=== PATIENT | male | born 1960 | race Caucasian/White ===

== ENCOUNTER 2021-01-13 12:18 | Inpatient (IN) ==
[2021-01-13] MEDS ORDERED: PANTOPRAZOLE 40 MG VIAL IV STA (13:00)
[2021-01-13] MEDS ORDERED: SODIUM CHLORIDE 0.9% 1,000 ML IV STA (13:00)
[2021-01-13 13:17] LABS: Basophils % 0.5 % (0.0-0.8); Eosinophils % 0.1 % (0.00-10.9); Hematocrit 29.1 VOL% (42.0-52.0); Hemoglobin 9.5 GM/DL (14.0-18.0); Immature Granulocytes % 0.6 %; Immature Granulocytes Absolute 0.05 #; Lymphocytes # 1.3 10*3/uL (1.4-4.0); Lymphocytes % 16.4 % (21.2-54.2); Mean Corpuscular HGB Conc 32.6 GM/DL (32-36); Mean Corpuscular Volume 94.5 FL (87-102); Mean Platelet Volume 9.5 FL (9.6-12.0); Monocytes % 3.9 % (1.7-12.7); Neutrophils % 78.5 % (38.7-73.9); Platelet Count 209 T/CUMM (130-400); Red Blood Count 3.08 MC/CUMM (3.8-5.5); Red Cell Distribution Width 14.6 % (9.3-17.3); White Blood Count 7.9 T/CUMM (4-12)
[2021-01-13 13:35] LABS: Albumin 3.1 G/DL (3.4-5.0); Bilirubin,Total 0.4 MG/DL (0.2-1.0); Calcium 8.3 MG/DL (8.5-10.1); Osmolality,Calculated 284.7 MOS/KG (273-304); Potassium 4.7 MMOL/L (3.5-5.1); Total Protein 5.6 G/DL (6.4-8.2)
[2021-01-13 13:37] LABS: PT Patient Result 10.8 SECS (10.5-12.0); Partial Thromboplastin Time 22.8 SECS (23.9-33.8)
[2021-01-13] MEDS ORDERED: NICOTINE 21 MG/24 HR PATCH TRANSDERM PRN (14:08)
[2021-01-13] MEDS ORDERED: chlordiazePOXIDE 10 MG CAPSULE PO PRN (14:08)
[2021-01-13] MEDS ORDERED: ACETAMINOPHEN 325 MG TABLET PO PRN (14:08)
[2021-01-13] MEDS ORDERED: DOCUSATE SODIUM 100 MG CAPSULE PO PRN (14:08)
[2021-01-13] MEDS ORDERED: CALCIUM CARBONATE CHEW 500 MG TABLET PO PRN (14:08)
[2021-01-13] MEDS ORDERED: GLUCAGON 1 MG VIAL IM PRN (14:08)
[2021-01-13] MEDS ORDERED: DEXTROSE 50% 25 GM/50 ML VIAL IV PRN (14:08)
[2021-01-13] MEDS ORDERED: ONDANSETRON 4 MG/2 ML VIAL IV PRN (14:08)
[2021-01-13] MEDS ORDERED: ALUMINUM/MAGNES/SIMETH MAX STR 30 ML UDCUP PO PRN (14:08)
[2021-01-13 14:51] LABS: % Iron Saturation 37.3 % (18-50); Ferritin 9.5 ng/ml (26-388)
[2021-01-13] MEDS: SODIUM CHLORIDE 0.9% 1,000 ML IV SCH (14:55)
[2021-01-13 15:03] LABS: Folate 13.89 NG/ML (5.38-24.0)
[2021-01-13 16:59] LABS: Hematocrit 25.9 VOL% (42.0-52.0); Hemoglobin 8.5 GM/DL (14.0-18.0)
[2021-01-13] MEDS: PANTOPRAZOLE 40 MG VIAL IV SCH (20:21)
[2021-01-13] MEDS: ZALEPLON 5 MG CAPSULE PO PRN (22:26)
[2021-01-14 01:17] LABS: Hematocrit 23.1 VOL% (42.0-52.0); Hemoglobin 7.6 GM/DL (14.0-18.0)
[2021-01-14 01:29] LABS: Albumin 2.6 G/DL (3.4-5.0); Bilirubin,Total 0.5 MG/DL (0.2-1.0); Calcium 7.6 MG/DL (8.5-10.1); Potassium 3.8 MMOL/L (3.5-5.1); Total Protein 4.8 G/DL (6.4-8.2)
[2021-01-14] MEDS: SODIUM CHLORIDE 0.9% 1,000 ML IV SCH (04:15)
[2021-01-14 05:56] LABS: Basophils % 0.5 % (0.0-0.8); Eosinophils # 0.1 10*3/uL (0.0-0.87); Eosinophils % 1.4 % (0.00-10.9); Hematocrit 22.1 VOL% (42.0-52.0); Hemoglobin 7.1 GM/DL (14.0-18.0); Immature Granulocytes % 0.5 %; Immature Granulocytes Absolute 0.03 #; Lymphocytes # 2.2 10*3/uL (1.4-4.0); Lymphocytes % 33.5 % (21.2-54.2); Mean Corpuscular HGB Conc 32.1 GM/DL (32-36); Mean Corpuscular Volume 95.3 FL (87-102); Monocytes % 7.6 % (1.7-12.7); Neutrophils % 56.5 % (38.7-73.9); Platelet Count 171 T/CUMM (130-400); Red Blood Count 2.32 MC/CUMM (3.8-5.5); Red Cell Distribution Width 14.8 % (9.3-17.3); White Blood Count 6.6 T/CUMM (4-12)
[2021-01-14 07:26] LABS: Hematocrit 22.3 VOL% (42.0-52.0); Hemoglobin 7.2 GM/DL (14.0-18.0)
[2021-01-14] MEDS ORDERED: SODIUM CHLORIDE 0.9% 1,000 ML IV PRN (08:16)
[2021-01-14] MEDS: FOLIC ACID 1 MG TABLET PO SCH (09:11)
[2021-01-14] MEDS: VENLAFAXINE XR 75 MG CAPSULE PO SCH ×2 (09:11→22:12)
[2021-01-14] MEDS: THIAMINE 100 MG TABLET PO SCH (09:12)
[2021-01-14] MEDS: PANTOPRAZOLE 40 MG VIAL IV SCH ×2 (09:53→22:12)
[2021-01-14 20:39] LABS: Hematocrit 27.3 VOL% (42.0-52.0)
[2021-01-14 20:40] LABS: Hemoglobin 8.8 GM/DL (14.0-18.0)
[2021-01-14] MEDS: ZALEPLON 5 MG CAPSULE PO PRN (22:25)
[2021-01-15 01:13] LABS: Hematocrit 26.5 VOL% (42.0-52.0); Hemoglobin 8.7 GM/DL (14.0-18.0)
[2021-01-15 06:03] LABS: Basophils % 0.6 % (0.0-0.8); Eosinophils # 0.1 10*3/uL (0.0-0.87); Hematocrit 26.3 VOL% (42.0-52.0); Hemoglobin 8.7 GM/DL (14.0-18.0); Immature Granulocytes % 0.3 %; Immature Granulocytes Absolute 0.02 #; Lymphocytes % 31.9 % (21.2-54.2); Mean Corpuscular HGB Conc 33.1 GM/DL (32-36); Mean Corpuscular Volume 93.3 FL (87-102); Mean Platelet Volume 9.5 FL (9.6-12.0); Monocytes % 7.4 % (1.7-12.7); Neutrophils % 57.8 % (38.7-73.9); Platelet Count 167 T/CUMM (130-400); Red Blood Count 2.82 MC/CUMM (3.8-5.5); Red Cell Distribution Width 14.8 % (9.3-17.3); White Blood Count 6.4 T/CUMM (4-12)
[2021-01-15 08:17] LABS: Hematocrit 28.3 VOL% (42.0-52.0); Hemoglobin 9.6 GM/DL (14.0-18.0)
[2021-01-15] MEDS: VENLAFAXINE XR 75 MG CAPSULE PO SCH ×2 (09:36→21:27)
[2021-01-15] MEDS: DILTIAZEM CD 180 MG CAPSULE PO SCH (09:36)
[2021-01-15] MEDS: PANTOPRAZOLE 40 MG VIAL IV SCH ×2 (09:36→21:27)
[2021-01-15] MEDS: ATORVASTATIN 40 MG TABLET PO SCH (09:37)
[2021-01-15] MEDS: FOLIC ACID 1 MG TABLET PO SCH (09:37)
[2021-01-15] MEDS: THIAMINE 100 MG TABLET PO SCH (09:37)
[2021-01-15] MEDS: ZALEPLON 5 MG CAPSULE PO PRN (21:27)
[2021-01-16 05:36] LABS: Basophils % 0.7 % (0.0-0.8); Eosinophils # 0.1 10*3/uL (0.0-0.87); Eosinophils % 2.1 % (0.00-10.9); Hematocrit 26.1 VOL% (42.0-52.0); Hemoglobin 8.9 GM/DL (14.0-18.0); Immature Granulocytes % 0.3 %; Immature Granulocytes Absolute 0.02 #; Lymphocytes # 1.6 10*3/uL (1.4-4.0); Lymphocytes % 28.2 % (21.2-54.2); Mean Corpuscular HGB Conc 34.1 GM/DL (32-36); Mean Corpuscular Volume 91.9 FL (87-102); Mean Platelet Volume 9.3 FL (9.6-12.0); Monocytes % 9.6 % (1.7-12.7); Neutrophils % 59.1 % (38.7-73.9); Platelet Count 166 T/CUMM (130-400); Red Blood Count 2.84 MC/CUMM (3.8-5.5); Red Cell Distribution Width 14.6 % (9.3-17.3); White Blood Count 5.7 T/CUMM (4-12)
[2021-01-16 06:02] LABS: Calcium 8.8 MG/DL (8.5-10.1); Osmolality,Calculated 288.7 MOS/KG (273-304); Potassium 3.9 MMOL/L (3.5-5.1)
[2021-01-16] MEDS: FOLIC ACID 1 MG TABLET PO SCH (12:01)
[2021-01-16] MEDS: DILTIAZEM CD 180 MG CAPSULE PO SCH (12:01)
[2021-01-16] MEDS: VENLAFAXINE XR 75 MG CAPSULE PO SCH ×2 (12:01→20:58)
[2021-01-16] MEDS: carvediloL 25 MG TABLET PO SCH (12:01)
[2021-01-16] MEDS: PANTOPRAZOLE 40 MG VIAL IV SCH ×2 (12:02→20:58)
[2021-01-16] MEDS: THIAMINE 100 MG TABLET PO SCH (12:02)
[2021-01-16] MEDS: ATORVASTATIN 40 MG TABLET PO SCH (12:02)
[2021-01-16] MEDS: ZALEPLON 5 MG CAPSULE PO PRN (20:59)
[2021-01-17] MEDS: DILTIAZEM CD 180 MG CAPSULE PO SCH (09:08)
[2021-01-17] MEDS: PANTOPRAZOLE 40 MG VIAL IV SCH (09:08)
[2021-01-17] MEDS: ATORVASTATIN 40 MG TABLET PO SCH (09:09)
[2021-01-17] MEDS: VENLAFAXINE XR 75 MG CAPSULE PO SCH (09:09)
[2021-01-17] MEDS: THIAMINE 100 MG TABLET PO SCH (09:09)
[2021-01-17] MEDS: carvediloL 25 MG TABLET PO SCH (09:09)
[2021-01-17] MEDS: FOLIC ACID 1 MG TABLET PO SCH (09:09)
[2021-01-17] MEDS ORDERED: LACTATED RINGERS 1,000 ML IV SCH (12:30)
[2021-01-17] MEDS ORDERED: LIDOCAINE 2% 5 ML VIAL ONE (13:08)
[2021-01-17] MEDS ORDERED: propofoL 200 MG/20 ML VIAL IV ONE (13:08)
[2021-01-17 16:15] VITALS: BP 144/72
== END 2021-01-17 17:00 | disposition home or self-care (01) | DRG 378 ==
LOC: N.ED 12:18 → SUATTDRO 14:08 → N.EDINP 14:08 → N.5E 15:51
PROVIDERS: ADMIT Internal Medicine; ATTEND Family Medicine

== ENCOUNTER 2022-07-04 16:43 | Inpatient (IN) ==
[2022-07-04] MEDS ORDERED: PANTOPRAZOLE 40 MG VIAL IV STA (21:32)
[2022-07-04 22:38] LABS: Basophils # 0.1 10*3/uL (0.0-0.2); Basophils % 0.7 % (0.0-0.8); Eosinophils # 0.2 10*3/uL (0.0-0.87); Eosinophils % 2.8 % (0.00-10.9); Hematocrit 22.4 VOL% (42.0-52.0); Hemoglobin 7.1 GM/DL (14.0-18.0); Immature Granulocytes % 0.5 %; Immature Granulocytes Absolute 0.04 #; Lymphocytes # 1.7 10*3/uL (1.4-4.0); Lymphocytes % 22.2 % (21.2-54.2); Mean Corpuscular HGB Conc 31.7 GM/DL (32-36); Mean Corpuscular Volume 105.2 FL (87-102); Monocytes # 0.6 10*3/uL (0.11-0.8); Monocytes % 7.5 % (1.7-12.7); Neutrophils % 66.3 % (38.7-73.9); Platelet Count 314 T/CUMM (130-400); Red Blood Count 2.13 MC/CUMM (3.8-5.5); Red Cell Distribution Width 15.5 % (9.3-17.3); White Blood Count 7.6 T/CUMM (4-12)
[2022-07-04 22:52] LABS: Albumin 3.3 G/DL (3.4-5.0); Bilirubin,Total 0.4 MG/DL (0.20-1.00); Osmolality,Calculated 290.6 MOS/KG (273-304); Potassium 3.7 MMOL/L (3.5-5.1); Total Protein 5.8 G/DL (6.4-8.2)
[2022-07-04 23:16] LABS: PT Patient Result 10.7 SECS (10.1-12.1); Partial Thromboplastin Time 23.4 SECS (23.7-32.9)
[2022-07-05] MEDS ORDERED: SODIUM CHLORIDE 0.9% 1,000 ML IV PRN (00:17)
[2022-07-05] MEDS ORDERED: ONDANSETRON 4 MG/2 ML VIAL IV PRN (01:07)
[2022-07-05] MEDS ORDERED: NICOTINE 21 MG/24 HR PATCH TRANSDERM PRN (01:07)
[2022-07-05] MEDS ORDERED: ZALEPLON 5 MG CAPSULE PO PRN (01:07)
[2022-07-05] MEDS ORDERED: hydrALAZINE 20 MG/1 ML VIAL IV PRN (01:07)
[2022-07-05] MEDS ORDERED: PANTOPRAZOLE INJ 200 MG in SODIUM CHLORIDE 0.9% 250 ML IV SCH (01:30)
[2022-07-05 05:54] LABS: Basophils % 0.5 % (0.0-0.8); Eosinophils # 0.2 10*3/uL (0.0-0.87); Eosinophils % 2.6 % (0.00-10.9); Hemoglobin 8.3 GM/DL (14.0-18.0); Immature Granulocytes % 0.3 %; Immature Granulocytes Absolute 0.02 #; Lymphocytes % 16.9 % (21.2-54.2); Mean Corpuscular HGB Conc 33.2 GM/DL (32-36); Mean Corpuscular Volume 98.4 FL (87-102); Mean Platelet Volume 8.7 FL (9.6-12.0); Monocytes # 0.5 10*3/uL (0.11-0.8); Monocytes % 7.7 % (1.7-12.7); Platelet Count 262 T/CUMM (130-400); Red Blood Count 2.54 MC/CUMM (3.8-5.5); Red Cell Distribution Width 18.2 % (9.3-17.3); White Blood Count 6.1 T/CUMM (4-12)
[2022-07-05 06:13] LABS: Calcium 8.5 MG/DL (8.5-10.1); Osmolality,Calculated 284.8 MOS/KG (273-304); Potassium 3.7 MMOL/L (3.5-5.1)
[2022-07-05] MEDS ORDERED: FERROUS SULFATE 325 MG TABLET PO SCH (08:00)
[2022-07-05] MEDS ORDERED: carvediloL 25 MG TABLET PO SCH (08:30)
[2022-07-05] MEDS ORDERED: AMIODARONE 200 MG TABLET PO SCH (09:00)
[2022-07-05] MEDS ORDERED: DILTIAZEM CD 180 MG CAPSULE PO SCH (09:00)
[2022-07-05] MEDS ORDERED: ATORVASTATIN 40 MG TABLET PO SCH (09:00)
[2022-07-05 09:38] LABS: Hematocrit 27.6 VOL% (42.0-52.0); Hemoglobin 9.1 GM/DL (14.0-18.0)
[2022-07-05 10:43] VITALS: BP 128/83
== END 2022-07-05 15:34 | disposition home or self-care (01) | DRG 813 ==
LOC: N.ED 16:43 → N.EDINP 07-05 03:19 → N.3E 07-05 04:07
PROVIDERS: ADMIT Internal Medicine; ATTEND Internal Medicine